=== PATIENT | female | born 1950 | race Caucasian/White ===

== ENCOUNTER → 2019-02-13 | Outpatient (CLI) | payer MEDICARE, OTHER ==
[~2019-02-13] MED LIST: None per pt
[2019-02-13 16:31] LABS: MICROSCOPIC NOT IND
[2019-02-13 16:32] LABS: BASOPHILS % (AUTO) 1 % (0-1); EOSINOPHILS # (AUTO) 0.23 x10^3/uL (0-0.4); EOSINOPHILS % (AUTO) 3 % (1-7); LYMPHOCYTES # (AUTO) 2.32 x10^3/uL (1-3.4); LYMPHOCYTES % (AUTO) 28 % (22-44); MD NO; MEAN CORPUSCULAR HEMOGLOBIN 29.8 pg (27.0-34.8); MEAN CORPUSCULAR HGB CONC 33.9 g/dL (32.4-35.8); MEAN CORPUSCULAR VOLUME 87.9 fL (80-100); MEAN PLATELET VOLUME 8.5 fL (7.4-10.4); MONOCYTES % (AUTO) 4 % (2-9); NEUTROPHILS # (AUTO) 5.25 x10^3/uL (1.8-6.8); NEUTROPHILS % (AUTO) 64 % (42-75); PLATELET COUNT 307 x10^3/uL (130-400); RED BLOOD COUNT 4.84 x10^6/uL (3.82-5.3); RED CELL DISTRIBUTION WIDTH 13.6 % (9.6-15.2)
[2019-02-13 16:37] LABS: CULTURE INDICATED? NO
[2019-02-13 16:39] LABS: ALANINE AMINOTRANSFERASE 32 U/L (12-78); ANION GAP 3 mmol/L (5-15); CALCIUM 9.4 mg/dL (8.5-10.1); CHLORIDE 107 mmol/L (98-107); CREATININE 1.23 mg/dL (0.55-1.02)
[2019-02-13 16:41] LABS: ALKALINE PHOSPHATASE 72 U/L (45-117); BILIRUBIN,TOTAL 0.6 mg/dL (0.2-1.0); TOTAL PROTEIN 7.4 g/dL (6.4-8.2)
== END | disposition home or self-care (01) ==
LOC: STAR 15:29
PROVIDERS: ATTEND Obstetrics & Gynecology Gynecology
DX: Z01.818 Encounter for other preprocedural examination (principal); Z90.710 Acquired absence of both cervix and uterus
CPT/HCPCS: 36415; 71046; 80053; 81003; 85025; 93005

== ENCOUNTER 2019-02-24 05:40 | Observation (INO) | payer MEDICARE, OTHER ==
[2019-02-24] VITALS (8 sets, daily range): BP systolic 120–153; BP diastolic 50–84
[~2019-02-24] VITALS: Ht 170.2 cm; Wt 79.0 kg
[2019-02-24] MEDS ORDERED: MIDAZOLAM 1 MG/ML, 2ML ONE (06:34)
[2019-02-24] MEDS ORDERED: FENTANYL PF 250 MCG/5ML ONE (06:35)
[2019-02-24] MEDS ORDERED: PHENYLEPHRINE 10 MG/ML ONE (06:39)
[2019-02-24] MEDS ORDERED: ACETAMINOPHEN 500 MG TABLET PO STA (06:43)
[2019-02-24] MEDS ORDERED: GABAPENTIN 300 MG CAPSULE PO STA (06:43)
[2019-02-24] MEDS ORDERED: FLUORESCEIN SODIUM 500 MG/5 ML ONE ×2 (06:53→07:16)
[2019-02-24] MEDS ORDERED: BUPIVACAINE/PF 0.25% ONE (06:53)
[2019-02-24] MEDS ORDERED: EPINEPHRINE 1 MG/ML, 1ML ONE (06:53)
[2019-02-24] MEDS ORDERED: THROMBIN 5,000 UNIT VIAL TP ONE (06:53)
[2019-02-24] MEDS ORDERED: NEOMY/POLYMYXIN B GU IRR. 1 ML ONE (06:54)
[2019-02-24] MEDS ORDERED: ACETAMINOPHEN 500 MG TABLET ONE (06:59)
[2019-02-24] MEDS ORDERED: GABAPENTIN 300 MG CAPSULE ONE (07:00)
[2019-02-24] MEDS ORDERED: LIDOCAINE 1%-EPI 1:100K, 30ML ONE (07:04)
[2019-02-24] MEDS: LACTATED RINGERS 1,000 ML IV SCH ×4 (07:06→23:00)
[2019-02-24] MEDS ORDERED: FUROSEMIDE 20 MG/2 ML ONE (07:16)
[2019-02-24] MEDS ORDERED: GABAPENTIN 300 MG CAPSULE PO ONE (07:23)
[2019-02-24] MEDS ORDERED: ACETAMINOPHEN 500 MG TABLET PO ONE (07:23)
[2019-02-24] MEDS ORDERED: MEPERIDINE/PF 25MG/0.5ML IVPush PRN (07:30)
[2019-02-24] MEDS ORDERED: HALOPERIDOL 5 MG/ML IV PRN (07:30)
[2019-02-24] MEDS ORDERED: OXYcodone 5 MG/5 ML ORAL.SOL UDC PO PRN (07:30)
[2019-02-24] MEDS ORDERED: PROMETHAZINE 25 MG/ML, 1ML IM PRN ×2 (07:30)
[2019-02-24] MEDS ORDERED: PROMETHAZINE 25 MG/ML, 1ML IV PRN (07:30)
[2019-02-24] MEDS ORDERED: PROMETHAZINE 25 MG SUPP PR PRN (07:30)
[2019-02-24] MEDS ORDERED: ONDANSETRON 2MG/ML, 2ML IV PRN ×2 (07:30→17:30)
[2019-02-24] MEDS ORDERED: LABETALOL 5MG/ML, 20ML IV PRN (07:30)
[2019-02-24] MEDS ORDERED: hydrALAzine 20 MG/ML, 1ML IV PRN (07:30)
[2019-02-24] MEDS ORDERED: PROMETHAZINE 12.5 MG SUPP PR PRN (07:30)
[2019-02-24] MEDS ORDERED: ONDANSETRON ODT 8 MG PO PRN (07:30)
[2019-02-24] MEDS ORDERED: HYDROmorphone 2 MG/ML, 1ML IVPush PRN (07:30)
[2019-02-24] MEDS ORDERED: MORPHINE SULFATE 4 MG/ML, 1ML IVPush PRN (07:30)
[2019-02-24] MEDS ORDERED: FENTANYL PF 100 MCG/2ML IV PRN (07:30)
[2019-02-24] MEDS ORDERED: LACTATED RINGERS 1,000 ML IV SCH (07:30)
[2019-02-24] MEDS ORDERED: INDIGO CARMINE 0.8%, 5ML ONE (07:54)
[2019-02-24] MEDS ORDERED: DEXAMETHASONE 4 MG/ML, 1ML ONE (07:58)
[2019-02-24] MEDS ORDERED: PROPOFOL 10 MG/ML, 20ML ONE (07:58)
[2019-02-24] MEDS ORDERED: ROCURONIUM 10MG/ML,5ML ONE (07:58)
[2019-02-24] MEDS ORDERED: GLYCOPYRROLATE 0.2MG/1ML, 5ML ONE (07:58)
[2019-02-24] MEDS ORDERED: NEOSTIGMINE 1 MG/ML, 10ML ONE (07:58)
[2019-02-24] MEDS ORDERED: ONDANSETRON 2MG/ML, 2ML ONE (07:58)
[2019-02-24] MEDS ORDERED: CEFAZOLIN 1,000 MG ONE (07:58)
[2019-02-24] MEDS ORDERED: KETOROLAC 30 MG/1 ML ONE (08:04)
[2019-02-24] MEDS ORDERED: FENTANYL PF 100 MCG/2ML ONE (08:50)
[2019-02-24] MEDS ORDERED: HYDROmorphone 2 MG/ML, 1ML ONE (10:46)
[2019-02-24] MEDS ORDERED: OXYcodone 5 MG/5 ML ORAL.SOL UDC ONE (10:46)
[2019-02-24] MEDS: KETOROLAC 30 MG/1 ML IV PRN (23:21)
[2019-02-25 03:00] VITALS: BP 126/76
[2019-02-25 04:14] VITALS: BP 126/76
[2019-02-25] MEDS: KETOROLAC 30 MG/1 ML IV PRN (06:28)
[2019-02-25] MEDS: LACTATED RINGERS 1,000 ML IV SCH (07:00)
[2019-02-25 07:59] VITALS: BP 127/67
[2019-02-25] MEDS ORDERED: HYDR-3653 PO (09:08)
== END 2019-02-25 09:45 | disposition home or self-care (01) ==
LOC: OUT 05:40 → ORIP 14:31 → 2NW 15:59 → DCLOUNGE 02-25 09:38
PROVIDERS: ADMIT Obstetrics & Gynecology Gynecology; ATTEND Obstetrics & Gynecology Gynecology
DX: N81.4 Uterovaginal prolapse, unspecified (principal); N39.3 Stress incontinence (female) (male); Z90.710 Acquired absence of both cervix and uterus; Z79.82 Long term (current) use of aspirin
CPT/HCPCS: 36415; 57265; 58260; 85014; 88305; 96374; 96376; C1771; G0378; J0690; J1100; J1170; J1885; J1940; J2250; J2370; J2405; J2704; J2710; J3010; J3490; J7120; 96375; J0171